=== PATIENT | male | born 1960 | race Caucasian/White ===

== ENCOUNTER → 2023-05-11 | Outpatient (CLI) | payer MEDICARE ==
[2023-05-11 15:49] LABS: Basophils # (A) 0.05 X 10*3/uL (0.00-0.10); Basophils % (A) 0.7 %; Eosinophils # (A) 0.08 X 10*3/uL (0.04-0.35); Eosinophils % (A) 1.1 %; HGB 15.5 g/dL (13.0-17.0); Lymphocytes % (A) 19.7 %; MCH 30.1 pg (27.0-32.0); MCV 91.3 FL (80.0-97.0); Mean Platelet Volume 11.3 FL (9.5-12.2); Monocytes % (A) 9.8 %; NRBC Per 100 WBC 0 X 10*3/uL (0.00-0.01); Neutrophils # (A) 4.87 X 10*3/uL (1.80-7.70); Neutrophils % (A) 68.4 %; Platelet Count 196 X 10*3/uL (140-440); RBC 5.15 X 10*6/uL (4.40-5.60); RDW 12.1 % (11.5-14.5); WBC 7.12 X 10*3/uL (4.50-10.00)
[2023-05-11 15:56] LABS: Blood Urea Nitrogen 18.2 mg/dL (9.0-27.0); Calcium 10.2 mg/dL (8.7-10.3); Carbon Dioxide 27.7 mmol/L (21.6-31.8); Chloride 107 mmol/L (96-109); Glucose 102 mg/dL (70-110); Potassium 4.5 mmol/L (3.5-5.5); Sodium 143 mmol/L (135-145)
[2023-05-11 21:10] LABS: Appearance,Urine Clear (Clear); Bilirubin,Urine Negative (Negative); Blood,Urine Negative (Negative); Color,Urine Yellow (Yellow); Ketones,Urine Negative (Negative); Nitrite,Urine Negative (Negative); PH, Urine 6.5; Specific Gravity,Urine 1.013 (1.001-1.030); Urobilinogen,Urine 0.2 E.U./DL
[2023-05-11 21:37] LABS: Bacteria,Urine 3+ (None Seen)
== END | disposition home or self-care (01) ==
LOC: LABWHC1 10:47
PROVIDERS: ATTEND Urology
DX: Z01.812 Encounter for preprocedural laboratory examination (principal); N35.919 Unspecified urethral stricture, male, unspecified site
CPT/HCPCS: 36415; 80048; 81001; 85025; 87086

== ENCOUNTER 2023-05-25 11:55 | Day surgery (SDC) | payer MEDICARE ==
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
[~2023-05-25 11:55] MED LIST: HYDROmorphone 0.5 MG/0.5 ML SYRINGE IVP PRN; LACTATED RINGERS 1,000 ML IV SCH
[2023-05-25] MEDS: LACTATED RINGERS 1,000 ML IV ONE (12:25)
[2023-05-25] MEDS: ONDANSETRON 4 MG/2 ML VIAL IVP ONE (12:54)
[2023-05-25] MEDS: DEXAMETHASONE SOD PHOSPHATE 4 MG/ML 1 ML VIAL IV ONE (12:54)
[2023-05-25 13:09] VITALS: RESP 16; TEMP 97.8
[2023-05-25] MEDS ORDERED: fentaNYL (PF) 50 MCG/ML 2 ML AMP ONE (14:28)
[2023-05-25] MEDS ORDERED: PROPOFOL 10 MG/ML 20 ML VIAL IV ONE (14:28)
[2023-05-25] MEDS ORDERED: MIDAZOLAM 2 MG/2 ML VIAL ONE (14:28)
[2023-05-25] MEDS ORDERED: LIDOCAINE 1% INJ 10MG/ML (20 ML MDV) ONE (14:28)
[2023-05-25] MEDS: GENTAMICIN 120 MG in SODIUM CHLORIDE 0.9% 100 ML IVPB PRN (14:33)
--- NOTE | 2023-05-25 15:10 | P.OP ---
Date of Procedure: 05/25/23 Preoperative Diagnosis: Urethral stricture Postoperative Diagnosis: Same Procedure(s) Performed: Cystoscopy, DVIU Implants: None Anesthesia: RYNE Surgeon: Khurram Rodríguez Estimated Blood Loss (ml): 20 Pathology: none sent Condition: stable Disposition: PACU Indications for Procedure: This is a 62-year-old male with history of neurogenic bladder, currently being managed with CIC. Patient is having difficulty performing intermittent catheterization secondary to a bulbar urethral stricture, has had required multiple dilation in the office to allow for continued CIC. He continues to have some difficulty catheterizing at this time. Discussed with him given this finding I do recommend proceeding in the OR with urethral dilation and a cystoscopy. Discussed with him the risk which includes but not limited to bleeding, infection, stricture recurrence. Risk of anesthesia was also discussed. He understood all the risk and agreed to proceed Operative Findings: 1 cm bulbar stricture that was of 14 Pakistani in the lumen, but significant calcification along the stricture. Description of Procedure: Patient brought to the operating room, sedation was induced. He was prepped and draped in sterile fashion and placed in a dorsolithotomy position. Patient had an narrowing at the meatus this was dilated using the Lynn sounds starting at 14 Pakistani and going all the way up to 24 Pakistani. Next a DVIU scope fitted with a 21 Pakistani sheath was inserted per urethra, scope was advanced to the bulbar urethra, at this point a very dense stricture was encountered, the stricture measured 1 cm it was 14 Pakistani in diameter and was significantly calcified. Using the DVIU scope the stricture was incised along 12:00, of note the significant calcification was along the ventral surface, thus an incision was also made at 5:00 to further open up the scar. This time I was able to advance the scope into the bladder, cystoscopy was performed showed no abnormality within the bladder. At this time the cystoscope was withdrawn as the cystoscope was withdrawn and a sensor wire was advanced through. Next a 20 Pakistani silicone catheter was passed over the wire into the bladder with a return of clear urine. The bladder was irrigated to clear. Patient tolerated procedure was taken to recovery in stable condition
[2023-05-25 15:51] VITALS: BP 142/66; PULSE 62
== END 2023-05-25 16:22 | disposition home or self-care (01) ==
LOC: OR 11:55
PROVIDERS: ATTEND Urology
DX: N35.912 Unspecified bulbous urethral stricture, male (principal); N31.9 Neuromuscular dysfunction of bladder, unspecified; I10 Essential (primary) hypertension; E78.5 Hyperlipidemia, unspecified; G83.9 Paralytic syndrome, unspecified; Z85.47 Personal history of malignant neoplasm of testis; Z87.891 Personal history of nicotine dependence; Z79.899 Other long term (current) drug therapy; Z90.79 Acquired absence of other genital organ(s)
CPT/HCPCS: 52276; C1769; J2250; J1100; J2405; J2001; J3010; J1580; J2704